=== PATIENT | female | born 2000 | race Caucasian/White ===

== ENCOUNTER 2021-08-28 11:08 | Emergency (ER) | payer BC ==
[2021-08-28 11:19] VITALS: TEMP 98.7; BMI 23.8
[2021-08-28] MEDS ORDERED: ACETAMINOPHEN 325 MG TABLET (FP) PO ONE (12:31)
[2021-08-28] MEDS ORDERED: ACETAMINOPHEN 325 MG TABLET (FP) ONE (12:37)
[2021-08-28 13:04] LABS: EPI CELLS 7 /uL (0-25.1); HYALINE CASTS 3 /uL (0-3.1); PH,URINE 6.5 (5.0-8.0); URINE APPEARANCE CLOUDY; URINE BACTERIA 1055 /uL (0-1359); URINE BILIRUBIN NEGATIVE (NEGATIVE); URINE COLOR YELLOW; URINE GLUCOSE (UA) NEGATIVE (NEGATIVE); URINE KETONE NEGATIVE (NEGATIVE); URINE LEUK ESTERASE 3+ (NEGATIVE); URINE NITRITE NEGATIVE (NEGATIVE); URINE PROTEIN 2+ (NEGATIVE); URINE RBC 93 /uL (0-23.9); URINE UROBILINOGEN 0.2 mg/dL (0.2-1.0); URINE WBC 1631 /uL (0-25.8)
[2021-08-28 13:05] LABS: HCG,QUALITATIVE URINE Negative
[2021-08-28] MEDS ORDERED: KETOROLAC TROMETHAMINE 30 MG/1 ML VIAL IM ONE (13:38)
[2021-08-28] MEDS ORDERED: KETOROLAC TROMETHAMINE 30 MG/1 ML VIAL ONE (13:45)
[2021-08-28 14:20] LABS: BASO % 0.4 % (0-2.0); EOS % 0.1 % (0-4.5); HEMATOCRIT 40.3 % (32.4-45.2); HEMOGLOBIN 13.9 GM/dL (10.7-15.3); LYMPH % 9.5 % (8-40); MCH 29.2 pg (25.7-33.7); MCHC 34.6 g/dl (32.0-36.0); MEAN CELL VOLUME 84.6 fl (80-96); MEAN PLT VOLUME 7.3 fl (7.5-11.1); MONO % 5.4 % (3.8-10.2); NEUT % 84.6 % (42.8-82.8); PLATELET COUNT 328 10^3/uL (134-434); RBC 4.76 M/mm3 (3.60-5.2); RDW 12.6 % (11.6-15.6); WHITE BLOOD COUNT 14.4 K/mm3 (4.0-10.0)
[2021-08-28 14:44] LABS: ALBUMIN 3.4 g/dl (3.4-5.0); BLOOD UREA NITROGEN 9.3 mg/dL (7-18); CALCIUM 9.1 mg/dL (8.5-10.1)
[2021-08-28 14:47] LABS: CREATININE 0.6 mg/dL (0.55-1.3)
[2021-08-28 14:49] LABS: BILIRUBIN,TOTAL 0.2 mg/dL (0.2-1)
[2021-08-28] MEDS ORDERED: CEPHALEXIN MONOHYDRATE 500 MG CAPSULE (UD) PO ONE ×2 (14:50→15:00)
[2021-08-28] MEDS ORDERED: CEPHALEXIN MONOHYDRATE 500 MG CAPSULE (UD) ONE (14:57)
[2021-08-28 16:15] VITALS: BP 117/71; PULSE 80
== END 2021-08-28 16:20 | disposition home or self-care (01) ==
LOC: JER 11:08
PROC: 3E0233Z Introduction of Anti-inflammatory into Muscle, Percutaneous Approach (ICD-10-PCS; principal; 2021-08-28)
DX: N10 Acute pyelonephritis (principal)
CPT/HCPCS: 36415; 74176-TC; 80053; 81003; 84703; 85025; 87086; 87186; 99284-25